=== PATIENT | male | born 1945 | race Caucasian/White ===

== ENCOUNTER 2018-07-10 08:04 | Day surgery (SDC) | payer MEDICARE, BC ==
[~2018-07-10 08:04] MED LIST: Lactated Ringers 1,000 ML IV SCH; Sodium Chloride 0.9% 10 ML Syringe FLUSH PRN
[2018-07-10] MEDS ORDERED: fentaNYL 250 MCG/5 ML SDV ONE ×2 (08:41→10:32)
[2018-07-10] MEDS ORDERED: Midazolam 1 MG/ML 2 ML SDV ONE ×2 (08:41→10:32)
[2018-07-10] MEDS ORDERED: Propofol 200 MG/20 ML SDV ONE ×2 (08:42→10:32)
--- NOTE | 2018-07-10 09:07 | PCM.HP ---
H&P History of Present Illness - General Date of Service: 07/10/18 Admit Problem/Dx: Admission Diagnosis/Problem Admission Diagnosis/Problem Hernia Source of Information: Patient, Old Records History Limitations: Reports: No Limitations - History of Present Illness Initial Comments - Free Text/Narative: Has left inguinal hernia, see 06/17 note for details - Related Data Allergies/Adverse Reactions: Allergies Allergy/AdvReac Type Severity Reaction Status Date / Time No Known Allergies Allergy Verified 07/10/18 08:27 Home Medications: Home Meds Nystatin/Triamcinolone Crm [Mycolog Crm] 1 applic TOP ASDIRECTED PRN 09/08/14 [ History] Omeprazole 1 cap PO DAILY 09/08/14 [History] atorvaSTATin [Lipitor] 20 mg PO BEDTIME 07/10/18 [History] Past Medical History - Past Health History Medical/Surgical History: Denies Medical/Surgical History HEENT History: Reports: Impaired Vision Other HEENT History: wears glasses Cardiovascular History: Reports: High Cholesterol, Hypertension Respiratory History: Reports: None Gastrointestinal History: Reports: GERD Other Gastrointestinal History: Left inguinal hernia Musculoskeletal History: Reports: Arthritis Neurological History: Reports: None Psychiatric History: Reports: None Endocrine/Metabolic History: Reports: None Hematologic History: Reports: None Immunologic History: Reports: None Oncologic (Cancer) History: Reports: Prostate Dermatologic History: Reports: None - Past Surgical History GI Surgical History: Reports: Colonoscopy, EGD Male Surgical History: Reports: Prostate Biopsy, Prostatectomy Social & Family History - Tobacco Use Smoking Status *Q: Former Smoker Used Tobacco, but Quit: Yes Month/Year Tobacco Last Used: quit 50 years ago - Caffeine Use Caffeine Use: Reports: Coffee - Recreational Drug Use Recreational Drug Use: No H&P Review of Systems - Review of Systems: Review Of Systems: ROS reveals no pertinent complaints other than HPI. Exam - Exam Exam: See Below - Vital Signs Vital Signs: Last Vital Signs Temp 97.9 F 07/10/18 08:25 Pulse 71 07/10/18 08:25 Resp 20 07/10/18 08:25 BP 144/86 H 07/10/18 08:25 Pulse Ox 95 07/10/18 08:25 Weight: 74.843 kg - Exam General: Alert, Oriented Lungs: Clear to Auscultation, Normal Respiratory Effort Cardiovascular: Regular Rate, Regular Rhythm GI/Abdominal Exam: Soft, Non-Tender, Hernia (left inguinal, reducible) Problem List Initiated/Reviewed/Updated: Yes Orders Last 24hrs: Active Orders 24 hr Category Date Time Status Patient Status [ADT] Routine ADT 07/10/18 08:00 Active Peripheral IV Care [RC] . DIRECTED Care 07/10/18 08:00 Active Verify Patient Consent Obtain [RC] ROUTINE Care 07/10/18 08:00 Active Lactated Ringers [Ringers, Lactated] 1,000 ml Med 07/10/18 08:00 Active IV ASDIRECTED Sodium Chloride 0.9% [Saline Flush] Med 07/10/18 08:00 Active 10 ml FLUSH ASDIRECTED PRN Antiembolic Hose [OM.PC] Routine Oth 07/10/18 08:00 Ordered Peripheral IV Insertion Adult [OM.PC] Routine Oth 07/10/18 08:00 Ordered Sequential Compression Device [OM.PC] Routine Oth 07/10/18 08:00 Ordered Medication Orders Lactated Ringer's (Ringers, Lactated) 1,000 mls @ 125 mls/hr IV ASDIRECTED ADI Last Admin: 07/10/18 08:53 Dose: 125 mls/hr Sodium Chloride (Saline Flush) 10 ml FLUSH ASDIRECTED PRN PRN Reason: Keep Vein Open Assessment/Plan Comment:: Left Inguinal Hernia Ok to proceed with surgery
[2018-07-10] MEDS ORDERED: Bupivacaine 0.25%/EPINEPHrine 1:200,000 30 ML SDV INJECT ONE (09:26)
[2018-07-10] MEDS ORDERED: ceFAZolin 1 GM Vial ONE (09:42)
--- NOTE | 2018-07-10 10:30 | PCM.OPNOTE ---
- General Post-Op/Procedure Note Date of Surgery/Procedure: 07/10/18 Operative Procedure(s): L IH repair with mesh Findings: Direct hernia Pre Op Diagnosis: L IH Post-Op Diagnosis: Same Anesthesia Technique: Local, MAC Primary Surgeon: Vignesh Cool Anesthesia Provider: Jasmin MONAHAN in mLs: 2 Complications: None Condition: Good
[2018-07-10] MEDS ORDERED: Ondansetron 4 MG/2 ML SDV ONE (10:32)
[2018-07-10 11:05] VITALS: BP 138/85
--- NOTE | 2018-07-10 13:20 | OR ---
Date of Procedure: 07/10/2018 PREOPERATIVE DIAGNOSIS: Left inguinal hernia. POSTOPERATIVE DIAGNOSIS: Left inguinal hernia, direct. PROCEDURE: Left inguinal hernia repair with mesh. ANESTHESIA: Local MAC. DESCRIPTION OF PROCEDURE: The patient was brought to the operating room after surgical site was marked by myself and the patient. A time-out was performed. IV sedation was administered. Left groin area was clipped, prepped with ChloraPrep and draped sterilely. IV antibiotic had been given. A routine hernia incision was made two fingerbreadths above the inguinal ligament and extended through the subcutaneous tissue. External fascia was opened in line with the external ring. I could not identify any ilioinguinal nerve. Cord structures were dissected off the pubic tubercle and a Andrea drain was placed around these. A moderate size cord lipoma was dissected off the cord and transected at the level of the internal ring. The cord was from the direct hernia sac and retracted superiorly. The direct hernia was interfering with visualization, so this was reduced with a [id number] 3-0 Vicryl to aid in visualization. Some cremasteric muscle fibers were clamped and divided to allow placement of the mesh. A large keyhole polypropylene mesh was then secured to the pubic tubercle with 0 prolene. Several more interrupted sutures were used to secure this to Onofre ligament and eventually transition stitch made to the shelving edge of Poupart ligament inferiorly. The edges of the mesh were trimmed to length and cut beneath the external fascia. Once the inferior edge was secured, the superior edge was secured to the fascia with interrupted 0 prolene providing a tension-free repair. Wound was thoroughly irrigated with Ancef and saline, and return was clear and hemostasis was assured. External fascia was closed with running 3-0 Vicryl. Subcutaneous tissue was re- approximated with 3-0 Vicryl and skin closed with a running 4-0 Vicryl subcuticular suture. Benzoin and Steri-Strips were placed and sterile dressing applied. The patient tolerated the procedure well. Estimated blood loss was 2 mL. He returned to Postanesthesia in stable condition. Testicles were in the scrotum following the procedure. DALE HOLCOMB MD /[id number]
== END 2018-07-10 12:45 | disposition home or self-care (01) ==
LOC: LL.SDS 08:04
PROVIDERS: ATTEND Surgery
DX: K40.90 Unilateral inguinal hernia, without obstruction or gangrene, not specified as recurrent (principal); D17.6 Benign lipomatous neoplasm of spermatic cord; I10 Essential (primary) hypertension; E78.00 Pure hypercholesterolemia, unspecified; K21.9 Gastro-esophageal reflux disease without esophagitis; Z87.891 Personal history of nicotine dependence
CPT/HCPCS: 00830; C1781; J0690; J2250; J2405; J2704; J3010; J7120

== ENCOUNTER 2021-10-12 08:01 | Day surgery (SDC) | payer MEDICARE ==
[~2021-10-12 08:01] MED LIST changes: -Lactated Ringers 1,000 ML IV SCH
[2021-10-12] MEDS ORDERED: fentaNYL 100 MCG/2 ML SDV ONE ×2 (08:20→09:30)
[2021-10-12] MEDS ORDERED: Midazolam 1 MG/ML 2 ML SDV ONE ×2 (08:20→09:30)
[2021-10-12] MEDS ORDERED: Propofol 200 MG/20 ML SDV ONE ×3 (08:21→09:30)
[2021-10-12] MEDS: ceFAZolin 2 GM in Premix Bag 1 BAG IV ONE (08:46)
[2021-10-12] MEDS: Lactated Ringers 1,000 ML IV SCH (08:47)
[2021-10-12] MEDS ORDERED: Ketamine 500 mg/10 ML MDV ONE ×2 (09:11→09:30)
[2021-10-12] MEDS ORDERED: Ondansetron 4 MG/2 ML SDV ONE (09:30)
[2021-10-12] MEDS: Bupivacaine 0.25%/EPINEPHrine 1:200,000 30 ML SDV INJECT ONE (09:51)
[2021-10-12] MEDS: Lidocaine 1% 5 ML VIAL INJECT ONE (09:51)
[2021-10-12] MEDS: ceFAZolin 1 GM Vial ONE (09:52)
[2021-10-12 11:27] VITALS: BP 107/79; PULSE 62
== END 2021-10-12 12:29 | disposition home or self-care (01) ==
LOC: LL.SDS 08:01
PROVIDERS: ATTEND Surgery
DX: K40.90 Unilateral inguinal hernia, without obstruction or gangrene, not specified as recurrent (principal); D17.6 Benign lipomatous neoplasm of spermatic cord; I10 Essential (primary) hypertension; E78.5 Hyperlipidemia, unspecified; K21.9 Gastro-esophageal reflux disease without esophagitis; K22.70 Barrett's esophagus without dysplasia; E78.2 Mixed hyperlipidemia; Z79.899 Other long term (current) drug therapy
CPT/HCPCS: C1781; J0690; J2250; J2405; J2704; J3010; J3490; J7120